=== PATIENT | male | born 1950 | race Caucasian/White ===

== ENCOUNTER → 2016-12-22 | Outpatient (CLI) | payer MEDICARE, BC | LOC: MW.CHFP 08:00 | PROVIDERS: ATTEND Emergency Medicine | DX: D70.2 Other drug-induced agranulocytosis (principal); R73.09 Other abnormal glucose; I10 Essential (primary) hypertension; E78.00 Pure hypercholesterolemia, unspecified | CPT/HCPCS: 99214 ==

== ENCOUNTER → 2016-12-28 | Outpatient (CLI) | payer MEDICARE, BC | END | disposition home or self-care (01) | LOC: MW.LAB 08:00 | PROVIDERS: ATTEND Dermatology | DX: C61 Malignant neoplasm of prostate (principal); R73.9 Hyperglycemia, unspecified; E89.5 Postprocedural testicular hypofunction | CPT/HCPCS: 36415; 85025 ==

== ENCOUNTER → 2016-12-28 | Outpatient (CLI) | payer MEDICARE, BC | END | disposition home or self-care (01) | LOC: MW.CHFP 08:05 | PROVIDERS: ATTEND Emergency Medicine | DX: R73.9 Hyperglycemia, unspecified (principal); C61 Malignant neoplasm of prostate; E89.5 Postprocedural testicular hypofunction | CPT/HCPCS: 36415; 83036 ==

== ENCOUNTER → 2017-01-11 | Outpatient (CLI) | payer MEDICARE, BC | LOC: MW.LAB 08:02 | PROVIDERS: ATTEND Dermatology | DX: Z51.81 Encounter for therapeutic drug level monitoring (principal); L13.9 Bullous disorder, unspecified; Z79.899 Other long term (current) drug therapy | CPT/HCPCS: 36415; 85025 ==

== ENCOUNTER 2018-10-04 11:10 | Observation (INO) | payer MEDICARE, BC ==
[2018-10-04] MEDS ORDERED: Sodium Chloride 0.9% 10 ML Syringe FLUSH PRN (11:22)
[2018-10-04] MEDS ORDERED: Sodium Chloride 0.9% 2.5 ML Syringe FLUSH PRN (11:22)
--- NOTE | 2018-10-04 11:31 | EDM.PDOC ---
ED HPI GENERAL MEDICAL PROBLEM - General Chief Complaint: Chest Pain Stated Complaint: CHEST PAIN Time Seen by Provider: 10/04/18 11:21 Source of Information: Reports: Patient History Limitations: Reports: No Limitations - History of Present Illness INITIAL COMMENTS - FREE TEXT/NARRATIVE: History of present illness: []Patient was lightly shoveling snow at 10 AM this morning when he developed left-sided chest pain that lasted approximately 20 minutes. He describes it as sharp stabbing and nonradiating. Patient denies any sweatiness, shortness of breath, dizziness or syncope. Patient recently saw Dr. Callahan and had a Holter monitor after being diagnosed with atrial fibrillation and starting Xarelto. She was given a Holter monitor in today. Last week patient had a couple episodes of similar chest pain brief period. He also notes that while walking he has had episodes where he has felt extremely weak. He has no chest pain at this time. .Review of systems: As per history of present illness and below otherwise all systems reviewed and negative. Past medical history: As per history of present illness and as reviewed below otherwise noncontributory. Surgical history: As per history of present illness and as reviewed below otherwise noncontributory. Social history: No reported history of drug or alcohol abuse. Family history: As per history of present illness and as reviewed below otherwise noncontributory. Physical exam: General: Well developed, well nourished in NAD HEENT: Atraumatic, normocephalic, pupils reactive, negative for conjunctival pallor or scleral icterus, mucous membranes moist, throat clear, neck supple, nontender, trachea midline. Lungs: Clear to auscultation, breath sounds equal bilaterally, chest nontender. Heart: S1S2, regular, negative for clicks, rubs, or JVD. Abdomen: NABS, Soft, nondistended, nontender. Negative for masses or hepatosplenomegaly. Negative for costovertebral tenderness. Pelvis: Stable nontender. Genitourinary: Deferred. Rectal: Deferred. Extremities: Atraumatic, negative for cords or calf pain. Neurovascular unremarkable. Neuro: Awake, alert, oriented. Cranial nerves II through XII unremarkable. Cerebellum unremarkable. Motor and sensory unremarkable throughout. Exam nonfocal. Skin:warm and dry Diagnostics: CBC, chemistry, troponin, chest x-ray, EKG Therapeutics: None ED Course: Patient remained stable and pain-free Impression: Chest pain Prescriptions: None Plan: Admit for observation and rule out [place] Definitive disposition and diagnosis as appropriate pending reevaluation and review of above. - Related Data Allergies Allergy/AdvReac Type Severity Reaction Status Date / Time Penicillins Allergy Rash Verified 10/04/18 11:21 Home Meds: Home Meds Allopurinol [Zyloprim] 300 mg PO DAILY 03/17/18 [History] Aspirin 81 mg PO DAILY 03/17/18 [History] Cholecalciferol (Vitamin D3) [Vitamin D3] 5,000 unit PO DAILY 03/17/18 [History] Dapsone 50 mg PO MOWEFR@03/17/18 [History] Diltiazem [Dilacor XR] 240 mg PO DAILY 03/17/18 [History] Folic Acid 1 mg PO DAILY 03/17/18 [History] Latanoprost/Pf [Latanoprost 0.005% Eye Drop] 1 drop EYEBOTH BEDTIME 03/17/18 [ History] Levothyroxine 75 mcg PO ACBREAKFAST 03/17/18 [History] Metoprolol Succinate [Toprol XL] 50 mg PO DAILY@1700 03/17/18 [History] Omeprazole 20 mg PO MOWEFR@0730 03/17/18 [History] Rivaroxaban [Xarelto] 20 mg PO DAILY@17003/17/18 [History] Venlafaxine HCl [Venlafaxine HCl ER] 37.5 mg PO DAILY 03/17/18 [History] atorvaSTATin [Lipitor] 40 mg PO DAILY@1700 03/17/18 [History] Betamethasone Dipropionate 1 applic TOP BID 10/04/18 [History] Dapsone 25 mg PO SUTUTHSA@2100 10/04/18 [History] Dapsone 50 mg PO SUTUTHSA@0900 10/04/18 [History] Dorzolamide [Trusopt 2% Ophth Soln] 1 drop EYEBOTH BID 10/04/18 [History] Timolol Maleate 1 drop EYEBOTH BID 10/04/18 [History] Past Medical History HEENT History: Reports: Glaucoma Cardiovascular History: Reports: CAD, High Cholesterol, Hypertension, Pacemaker Respiratory History: Reports: Sleep Apnea Other Respiratory History: Sleep apnea with machine Gastrointestinal History: Reports: None Genitourinary History: Reports: Prostate Disorder, Other (See Below) Other Genitourinary History: prostate cancer Musculoskeletal History: Reports: Gout Neurological History: Reports: None Psychiatric History: Reports: Depression Endocrine/Metabolic History: Reports: Hypothyroidism, Obesity/BMI 30+ Hematologic History: Reports: Blood Transfusion(s) Immunologic History: Reports: None Oncologic (Cancer) History: Reports: Prostate Dermatologic History: Reports: Other (See Below) Other Dermatologic History: Dermatitis chronic - Infectious Disease History Infectious Disease History: Reports: Chicken Pox - Past Surgical History HEENT Surgical History: Reports: Cataract Surgery, Tonsillectomy GI Surgical History: Reports: Colonoscopy Male Surgical History: Reports: Prostatectomy Neurological Surgical History: Reports: None Musculoskeletal Surgical History: Reports: Arthroscopic Knee, Knee Replacement Social & Family History - Family History Family Medical History: Noncontributory - Tobacco Use Smoking Status *Q: Former Smoker Used Tobacco, but Quit: Yes Month/Year Tobacco Last Used: 40 years - Caffeine Use Caffeine Use: Reports: Coffee, Soda, Tea - Recreational Drug Use Recreational Drug Use: No ED ROS GENERAL - Review of Systems Review Of Systems: ROS reveals no pertinent complaints other than HPI. ED EXAM, GENERAL - Physical Exam Exam: See Below (See history of present illness) Course - Vital Signs Last Recorded V/S: Last Vital Signs Temp 97.5 F 10/05/18 05:14 Pulse 70 10/05/18 05:14 Resp 18 10/05/18 05:14 BP 135/87 10/05/18 05:14 Pulse Ox 90 L 10/05/18 05:14 - Orders/Labs/Meds Orders: Active Orders 24 hr Category Date Time Status Patient Status [ADT] Stat ADT 10/04/18 13:15 Active Antiembolic Devices [RC] PER UNIT ROUTINE Care 10/04/18 13:42 Active Oxygen Therapy [RC] PRN Care 10/04/18 13:42 Active Up ad Deandra [RC] ASDIRECTED Care 10/04/18 13:42 Active VTE/DVT Education [RC] PER UNIT ROUTINE Care 10/04/18 13:42 Active Vital Signs [RC] Q4H Care 10/04/18 13:42 Active Allopurinol [Zyloprim] Med 10/05/18 09:00 Active 300 mg PO DAILY Aspirin Med 10/05/18 09:00 Active 81 mg PO DAILY Diltiazem [Cardizem CD] Med 10/05/18 09:00 Active 240 mg PO DAILY Levothyroxine Med 10/05/18 07:30 Active 75 mcg PO ACBREAKFAST Metoprolol Succinate [Toprol XL] Med 10/05/18 09:00 Active 50 mg PO DAILY Patient's Own Medication [Ptom] Med 10/05/18 17:00 Active 1 each PO DAILY@1700 Patient's Own Medication [Ptom] Med 10/05/18 09:00 Active 1 each TOP BID Patient's Own Medication [Ptom] Med 10/05/18 09:00 Active 2 each PO MoWeFr@0900,2100 Sodium Chloride 0.9% [Saline Flush] Med 10/04/18 11:22 Active 10 ml FLUSH ASDIRECTED PRN Sodium Chloride 0.9% [Saline Flush] Med 10/04/18 11:22 Active 2.5 ml FLUSH ASDIRECTED PRN Venlafaxine [Effexor XR] Med 10/05/18 09:00 Active 37.5 mg PO DAILY atorvaSTATin [Lipitor] Med 10/05/18 09:00 Active 40 mg PO DAILY Saline Lock Insert [OM.PC] Stat Oth 10/04/18 11:22 Ordered Sequential Compression Device [OM.PC] Per Unit Routine Oth 10/04/18 13:42 Ordered Resuscitation Status Routine Resus Stat 10/04/18 13:42 Ordered Medication Orders Acetaminophen (Tylenol) 650 mg PO Q6H PRN PRN Reason: Pain Allopurinol (Zyloprim) 300 mg PO DAILY [facility] Aspirin (Aspirin) 81 mg PO DAILY [facility] Atorvastatin Calcium (Lipitor) 40 mg PO DAILY [facility] Diltiazem HCl (Cardizem Cd) 240 mg PO DAILY [facility] Levothyroxine Sodium (Levothyroxine) 75 mcg PO ACBREAKFAST [facility] Last Admin: 10/05/18 07:00 Dose: 75 mcg Metoprolol Succinate (Toprol Xl) 50 mg PO DAILY [facility] Betamethasone Dip (Cream 0.05%) 1 each TOP BID [facility] Dapsone 25 Mg Tablet 2 each PO MoWeFr@0900,2100 [facility] Xarelto 20 Mg 1 each PO DAILY@1700 [facility] Patient Own Medication (Ptom) 2 each PO SuTuThSa@0900 [facility] Dapsone 25 Mg 1 each PO SuTuThSa@2100 [facility] Last Admin: 10/04/18 20:06 Dose: 1 each Timolol Opth 1 each EYEBOTH BID [facility] Last Admin: 10/04/18 20:06 Dose: 1 each Dorzolamide (Ophthalmic Drops) 1 each EYEBOTH BID [facility] Last Admin: 10/04/18 20:06 Dose: 1 each Latanoprost (Ophthalmic) 1 each EYEBOTH BEDTIME [facility] Last Admin: 10/04/18 20:06 Dose: 1 each Sodium Chloride (Saline Flush) 10 ml FLUSH ASDIRECTED PRN PRN Reason: Keep Vein Open Sodium Chloride (Saline Flush) 2.5 ml FLUSH ASDIRECTED PRN PRN Reason: Keep Vein Open Venlafaxine HCl (Effexor Xr) 37.5 mg PO DAILY [facility] Labs: Laboratory Tests 10/04/18 10/04/18 Range/Units 11:37 11:37 WBC 4.68 (4.0-11.0) K/uL RBC 4.02 L (4.50-5.90) M/uL Hgb 12.5 L (13.0-17.0) g/dL Hct 38.8 (38.0-50.0) % MCV 96.5 (80.0-98.0) fL MCH 31.1 (27.0-32.0) pg MCHC 32.2 (31.0-37.0) g/dL RDW Std Deviation 49.2 (28.0-62.0) fl RDW Coeff of Darren 14 (11.0-15.0) % Plt Count 163 (150-400) K/uL MPV 9.80 (7.40-12.00) fL Neut % (Auto) 72.0 (48.0-80.0) % Lymph % (Auto) 15.6 L (16.0-40.0) % [place] % (Auto) 10.7 (0.0-15.0) % Eos % (Auto) 1.5 (0.0-7.0) % Baso % (Auto) 0.2 (0.0-1.5) % Neut # (Auto) 3.4 (1.4-5.7) K/uL Lymph # (Auto) 0.7 (0.6-2.4) K/uL [place] # (Auto) 0.5 (0.0-0.8) K/uL Eos # (Auto) 0.1 (0.0-0.7) K/uL Baso # (Auto) 0.0 (0.0-0.1) K/uL Nucleated RBC % 0.0 /100WBC Nucleated RBCs # 0 K/uL Sodium 141 (136-148) mmol/L Potassium 3.7 (3.5-5.1) mmol/L Chloride 105 (98-107) mmol/L Carbon Dioxide 27.6 (21.0-32.0) mmol/L BUN 12 (7.0-18.0) mg/dL Creatinine 0.9 (0.8-1.3) mg/dL Est Cr Clr Drug Dosing 63.95 mL/min Estimated GFR (MDRD) > 60.0 ml/min Glucose 103 (74-106) mg/dL Calcium 9.4 (8.5-10.1) mg/dL Total Bilirubin 0.8 (0.2-1.0) mg/dL AST 20 (15-37) IU/L ALT 22 (14-63) IU/L Alkaline Phosphatase 65 (46-116) U/L Troponin I < 0.050 (0.000-0.056) ng/mL Total Protein 6.9 (6.4-8.2) g/dL Albumin 3.9 (3.4-5.0) g/dL Globulin 3.0 (2.6-4.0) g/dL Albumin/Globulin Ratio 1.3 (0.9-1.6) Meds: Medications Generic Name Dose Route Start Last Admin Trade Name Freq PRN Reason Stop Dose Admin Acetaminophen 650 mg 10/04/18 16:49 Tylenol PO Q6H PRN Pain Allopurinol 300 mg 10/05/18 09:00 Zyloprim PO DAILY [facility] Aspirin 81 mg 10/05/18 09:00 Aspirin PO DAILY [facility] Atorvastatin Calcium 40 mg 10/05/18 09:00 Lipitor PO DAILY [facility] Diltiazem HCl 240 mg 10/05/18 09:00 Cardizem Cd PO DAILY [facility] Levothyroxine Sodium 75 mcg 10/05/18 07:30 10/05/18 07:00 Levothyroxine PO 75 mcg ACBREAKFAST [facility] Administration Metoprolol Succinate 50 mg 10/05/18 09:00 Toprol Xl PO DAILY [facility] Betamethasone Dip 1 each 10/05/18 09:00 Cream 0.05% TOP BID [facility] Dapsone 25 Mg Tablet 2 each 10/05/18 09:00 PO MoWeFr@0900,2100 [facility] Xarelto 20 Mg 1 each 10/05/18 17:00 PO DAILY@1700 [facility] Patient Own Medication 2 each 10/06/18 09:00 Ptom PO SuTuThSa@0900 [facility] Dapsone 25 Mg 1 each 10/04/18 21:00 10/04/18 20:06 PO 1 each SuTuThSa@2100 [facility] Administration Timolol Opth 1 each 10/04/18 21:00 10/04/18 20:06 EYEBOTH 1 each BID [facility] Administration Dorzolamide 1 each 10/04/18 21:00 10/04/18 20:06 Ophthalmic Drops EYEBOTH 1 each BID [facility] Administration Latanoprost 1 each 10/04/18 21:00 10/04/18 20:06 Ophthalmic EYEBOTH 1 each BEDTIME [facility] Administration Sodium Chloride 10 ml 10/04/18 11:22 Saline Flush FLUSH ASDIRECTED PRN Keep Vein Open Sodium Chloride 2.5 ml 10/04/18 11:22 Saline Flush FLUSH ASDIRECTED PRN Keep Vein Open Venlafaxine HCl 37.5 mg 10/05/18 09:00 Effexor Xr PO DAILY [facility] Departure - Departure Time of Disposition: 07:40 Disposition: Admitted As Inpatient 64 Condition: Good Clinical Impression: Chest pain Qualifiers: Chest pain type: unspecified Qualified Code(s): R07.9 - Chest pain, unspecified - My Orders Last 24 Hours: My Active Orders 10/04/18 11:22 Sodium Chloride 0.9% [Saline Flush] 10 ml FLUSH ASDIRECTED PRN Sodium Chloride 0.9% [Saline Flush] 2.5 ml FLUSH ASDIRECTED PRN Saline Lock Insert [OM.PC] Stat 10/04/18 13:15 Patient Status [ADT] Stat - Assessment/Plan Last 24 Hours: My Active Orders 10/04/18 11:22 Sodium Chloride 0.9% [Saline Flush] 10 ml FLUSH ASDIRECTED PRN Sodium Chloride 0.9% [Saline Flush] 2.5 ml FLUSH ASDIRECTED PRN Saline Lock Insert [OM.PC] Stat 10/04/18 13:15 Patient Status [ADT] Stat
--- NOTE | 2018-10-04 12:27 | CR ---
INDICATION: Shortness of breath TECHNIQUE: Chest 1 view. COMPARISON: None FINDINGS: Cardiovascular and mediastinum: Heart size and vasculature are normal in caliber and appearance. Mediastinum is within normal limits. Dual lead left-sided transvenous pacer device. Lungs and pleural space: Lungs are clear. No sign of infiltrate or mass. No sign of pleural effusion. No pneumothorax. Bones and soft tissues: No significant findings. IMPRESSION: Unremarkable chest. Dictated by Femi Carpio MD @ 10/04/2018 12:27:19 PM Dictated by: Femi Carpio MD @ 10/04/2018 12:27:23 (Electronically Signed)
[2018-10-04 12:37] LABS: CHLORIDE,CL 105 mmol/L (98-107); SODIUM,NA 141 mmol/L (136-148)
--- NOTE | 2018-10-04 13:52 | PCM.HP ---
H&P History of Present Illness - General Date of Service: 10/04/18 Admit Problem/Dx: Admission Diagnosis/Problem Admission Diagnosis/Problem Chest pain - History of Present Illness Initial Comments - Free Text/Narative: 68 yo male with pmh of atrial fibrillation, on anticoagulation, s/p pacemaker placement who presents to the ED with complaints of chest pain. The chest pain occurred after shoveling snow and lasted 20 minutes. It was right sided radiating to shoulder and went away spontaneusly. He had no associated symptoms of shortness of breath, diaphoresis or dizziness. Patient finished a zio patch today. Dr. Martines ordered it due to him having brief episodic symptoms of fatigue and lightheadedness several times last month. - Related Data Allergies/Adverse Reactions: Allergies Allergy/AdvReac Type Severity Reaction Status Date / Time Penicillins Allergy Rash Verified 10/04/18 11:21 Home Medications: Home Meds Allopurinol [Zyloprim] 300 mg PO DAILY 03/17/18 [History] Aspirin 81 mg PO DAILY 03/17/18 [History] Betamethasone Dipropionate [Betamethasone Diprop Augmented] 50 gm EYEBOTH DAILY 03/17/18 [History] Brimonidine Tartrate [Brimonidine Tartrate 0.2% Ophth Soln] 1 drop EYEBOTH DAILY 03/17/18 [History] Cholecalciferol (Vitamin D3) [Vitamin D3] 5,000 unit PO DAILY 03/17/18 [History] Dapsone 1 tab PO DAILY 03/17/18 [History] Diltiazem [Dilacor XR] 240 mg PO DAILY 03/17/18 [History] Dorzolamide HCl/Timolol Maleat [Dorzolamide-Timolol Eye Drops] 1 drop EYEBOTH DAILY 03/17/18 [History] Folic Acid 1 mg PO DAILY 03/17/18 [History] Latanoprost/Pf [Latanoprost 0.005% Eye Drop] 1 drop EYEBOTH BEDTIME 03/17/18 [ History] Levothyroxine 75 mcg PO ACBREAKFAST 03/17/18 [History] Metoprolol Succinate [Toprol XL] 25 mg PO DAILY 03/17/18 [History] Omeprazole 20 mg PO DAILY 03/17/18 [History] Rivaroxaban [Xarelto] 20 mg PO DAILY 03/17/18 [History] Venlafaxine HCl [Venlafaxine HCl ER] 37.5 mg PO DAILY 03/17/18 [History] atorvaSTATin [Lipitor] 40 mg PO DAILY 03/17/18 [History] Past Medical History HEENT History: Reports: Glaucoma Cardiovascular History: Reports: CAD, High Cholesterol, Hypertension, Pacemaker Respiratory History: Reports: Sleep Apnea Other Respiratory History: Sleep apnea with machine Gastrointestinal History: Reports: None Genitourinary History: Reports: Prostate Disorder, Other (See Below) Other Genitourinary History: prostate cancer Musculoskeletal History: Reports: Gout Neurological History: Reports: None Psychiatric History: Reports: Depression Endocrine/Metabolic History: Reports: Hypothyroidism, Obesity/BMI 30+ Hematologic History: Reports: Blood Transfusion(s) Immunologic History: Reports: None Oncologic (Cancer) History: Reports: Prostate Dermatologic History: Reports: Other (See Below) Other Dermatologic History: Dermatitis chronic - Infectious Disease History Infectious Disease History: Reports: Chicken Pox - Past Surgical History HEENT Surgical History: Reports: Cataract Surgery, Tonsillectomy GI Surgical History: Reports: Colonoscopy Male Surgical History: Reports: Prostatectomy Neurological Surgical History: Reports: None Musculoskeletal Surgical History: Reports: Arthroscopic Knee, Knee Replacement Social & Family History - Family History Family Medical History: Noncontributory - Tobacco Use Smoking Status *Q: Former Smoker Used Tobacco, but Quit: Yes Month/Year Tobacco Last Used: 40 years - Caffeine Use Caffeine Use: Reports: Coffee, Soda, Tea - Recreational Drug Use Recreational Drug Use: No H&P Review of Systems - Review of Systems: Review Of Systems: ROS reveals no pertinent complaints other than HPI. Exam - Vital Signs Vital Signs: Last Vital Signs Temp 36.2 C 10/04/18 11:21 Pulse 71 10/04/18 13:00 Resp 18 10/04/18 13:00 BP 151/85 H 10/04/18 13:00 Pulse Ox 93 L 10/04/18 13:00 Weight: 113.398 kg - Exam General: Alert Lungs: Clear to Auscultation, Normal Respiratory Effort Cardiovascular: Regular Rate, Regular Rhythm GI/Abdominal Exam: Soft, Non-Tender Extremities: Non-Tender, No Pedal Edema Skin: Warm, Dry, Intact Psychiatric: Alert, Normal Mood - Patient Data Lab Results Last 24 hrs: Laboratory Results - last 24 hr 10/04/18 10/04/18 Range/Units 11:37 11:37 WBC 4.68 (4.0-11.0) K/uL RBC 4.02 L (4.50-5.90) M/uL Hgb 12.5 L (13.0-17.0) g/dL Hct 38.8 (38.0-50.0) % MCV 96.5 (80.0-98.0) fL MCH 31.1 (27.0-32.0) pg MCHC 32.2 (31.0-37.0) g/dL RDW Std Deviation 49.2 (28.0-62.0) fl RDW Coeff of Darren 14 (11.0-15.0) % Plt Count 163 (150-400) K/uL MPV 9.80 (7.40-12.00) fL Neut % (Auto) 72.0 (48.0-80.0) % Lymph % (Auto) 15.6 L (16.0-40.0) % [place] % (Auto) 10.7 (0.0-15.0) % Eos % (Auto) 1.5 (0.0-7.0) % Baso % (Auto) 0.2 (0.0-1.5) % Neut # (Auto) 3.4 (1.4-5.7) K/uL Lymph # (Auto) 0.7 (0.6-2.4) K/uL [place] # (Auto) 0.5 (0.0-0.8) K/uL Eos # (Auto) 0.1 (0.0-0.7) K/uL Baso # (Auto) 0.0 (0.0-0.1) K/uL Nucleated RBC % 0.0 /100WBC Nucleated RBCs # 0 K/uL Sodium 141 (136-148) mmol/L Potassium 3.7 (3.5-5.1) mmol/L Chloride 105 (98-107) mmol/L Carbon Dioxide 27.6 (21.0-32.0) mmol/L BUN 12 (7.0-18.0) mg/dL Creatinine 0.9 (0.8-1.3) mg/dL Est Cr Clr Drug Dosing 63.95 mL/min Estimated GFR (MDRD) > 60.0 ml/min Glucose 103 (74-106) mg/dL Calcium 9.4 (8.5-10.1) mg/dL Total Bilirubin 0.8 (0.2-1.0) mg/dL AST 20 (15-37) IU/L ALT 22 (14-63) IU/L Alkaline Phosphatase 65 (46-116) U/L Troponin I < 0.050 (0.000-0.056) ng/mL Total Protein 6.9 (6.4-8.2) g/dL Albumin 3.9 (3.4-5.0) g/dL Globulin 3.0 (2.6-4.0) g/dL Albumin/Globulin Ratio 1.3 (0.9-1.6) Result Diagrams: 10/04/18 11:37 10/04/18 11:37 Problem List Initiated/Reviewed/Updated: Yes Orders Last 24hrs: Active Orders 24 hr Category Date Time Status Patient Status [ADT] Stat ADT 10/04/18 13:15 Active Antiembolic Devices [RC] PER UNIT ROUTINE Care 10/04/18 13:42 Ordered EKG Documentation Completion [RC] STAT Care 10/04/18 11:22 Active Oxygen Therapy [RC] PRN Care 10/04/18 13:42 Ordered Up ad Deandra [RC] ASDIRECTED Care 10/04/18 13:42 Ordered VTE/DVT Education [RC] PER UNIT ROUTINE Care 10/04/18 13:42 Ordered Vital Signs [RC] Q4H Care 10/04/18 13:42 Ordered Regular Diet [DIET] Diet 10/04/18 Breakfast Ordered TROPONIN I [CHEM] Q6H Lab 10/04/18 17:00 Ordered TROPONIN I [CHEM] Q6H Lab 10/04/18 23:00 Ordered Allopurinol [Zyloprim] Med 10/05/18 09:00 Ordered 300 mg PO DAILY Aspirin Med 10/05/18 09:00 Ordered 81 mg PO DAILY Betamethasone Dipropionate [Betamethasone Diprop Med 10/05/18 09:00 Ordered Augmented] 50 gm EYEBOTH DAILY Brimonidine Tartrate Med 10/05/18 09:00 Ordered 1 drop EYEBOTH DAILY Dapsone [Dapsone] Med 10/05/18 09:00 Ordered 1 tab PO DAILY Diltiazem Med 10/05/18 09:00 Ordered 240 mg PO DAILY Levothyroxine Med 10/05/18 07:30 Ordered 75 mcg PO ACBREAKFAST Metoprolol Succinate [Toprol XL] Med 10/05/18 09:00 Ordered 50 mg PO DAILY Rivaroxaban [Xarelto] Med 10/05/18 09:00 Ordered 20 mg PO DAILY Sodium Chloride 0.9% [Saline Flush] Med 10/04/18 11:22 Active 10 ml FLUSH ASDIRECTED PRN Sodium Chloride 0.9% [Saline Flush] Med 10/04/18 11:22 Active 2.5 ml FLUSH ASDIRECTED PRN Venlafaxine HCl [Venlafaxine HCl ER] Med 10/05/18 09:00 Ordered 37.5 mg PO DAILY atorvaSTATin [Lipitor] Med 10/05/18 09:00 Ordered 40 mg PO DAILY Saline Lock Insert [OM.PC] Stat Oth 10/04/18 11:22 Ordered Sequential Compression Device [OM.PC] Per Unit Routine Oth 10/04/18 13:42 Ordered Resuscitation Status Routine Resus Stat 10/04/18 13:42 Ordered Medication Orders Allopurinol (Zyloprim) 300 mg PO DAILY [facility] Aspirin (Aspirin) 81 mg PO DAILY [facility] Atorvastatin Calcium (Lipitor) 40 mg PO DAILY [facility] Levothyroxine Sodium (Levothyroxine) 75 mcg PO ACBREAKFAST [facility] Metoprolol Succinate (Toprol Xl) 50 mg PO DAILY [facility] Non-Formulary Medication (Betamethasone Dipropionate [Betamethasone Diprop Augmented]) 50 gm EYEBOTH DAILY [facility] Non-Formulary Medication (Brimonidine Tartrate) 1 drop EYEBOTH DAILY [facility] Non-Formulary Medication (Dapsone [Dapsone]) 1 tab PO DAILY [facility] Non-Formulary Medication (Diltiazem) 240 mg PO DAILY [facility] Non-Formulary Medication (Rivaroxaban [Xarelto]) 20 mg PO DAILY [facility] Non-Formulary Medication (Venlafaxine Hcl [Venlafaxine Hcl Er]) 37.5 mg PO DAILY [facility] Sodium Chloride (Saline Flush) 10 ml FLUSH ASDIRECTED PRN PRN Reason: Keep Vein Open Sodium Chloride (Saline Flush) 2.5 ml FLUSH ASDIRECTED PRN PRN Reason: Keep Vein Open Assessment/Plan Comment:: 68 yo male admitted with chest pain. We will monitor overnight on telemetry and trend cardiac enzymes.
[2018-10-04] MEDS ORDERED: Acetaminophen 325 MG Tab PO PRN (16:49)
[2018-10-04] MEDS: DORZOLAMIDE EYEBOTH SCH (20:06)
[2018-10-04] MEDS: TIMOLOL OPTH EYEBOTH SCH (20:06)
[2018-10-04] MEDS ORDERED: LATANOPROST EYEBOTH SCH (21:00)
[2018-10-04] MEDS ORDERED: DAPSONE 25 MG PO SCH (21:00)
[2018-10-05] MEDS ORDERED: Levothyroxine 75 MCG Tab PO SCH (07:30)
[2018-10-05 08:10] VITALS: BP 144/75
[2018-10-05] MEDS ORDERED: Metoprolol Succinate 50 MG Tab.ER PO SCH (09:00)
[2018-10-05] MEDS ORDERED: BRIMONIDINE EYEBOTH SCH (09:00)
[2018-10-05] MEDS ORDERED: atorvaSTATin 40 MG Tab PO SCH (09:00)
[2018-10-05] MEDS ORDERED: Venlafaxine 37.5 MG Cap.ER PO SCH (09:00)
[2018-10-05] MEDS ORDERED: BETAMETHASONE DIP 0.05% TOP SCH (09:00)
[2018-10-05] MEDS ORDERED: Diltiazem 120 MG Cap.CD PO SCH (09:00)
[2018-10-05] MEDS ORDERED: DAPSONE 25 MG TABLET PO SCH (09:00)
[2018-10-05] MEDS ORDERED: Allopurinol 300 MG Tab PO SCH (09:00)
[2018-10-05] MEDS ORDERED: Aspirin 81 MG Tab.Chew PO SCH (09:00)
[2018-10-05] MEDS: DORZOLAMIDE EYEBOTH SCH (10:47)
[2018-10-05] MEDS: TIMOLOL OPTH EYEBOTH SCH (10:48)
--- NOTE | 2018-10-05 11:04 | PCM.DCSUM1 ---
Discharge Summary - Hospital Course Brief History: 68 yo male with pmh of atrial fibrillation, on anticoagulation, s /p pacemaker placement who presents to the ED with complaints of chest pain. The chest pain occurred after shoveling snow and lasted 20 minutes. It was right sided radiating to shoulder and went away spontaneusly. He had no associated symptoms of shortness of breath, diaphoresis or dizziness. Patient finished a zio patch today. Dr. Matrines ordered it due to him having brief episodic symptoms of fatigue and lightheadedness several times last month. Diagnosis: Stroke: No - Discharge Data Discharge Date: 10/05/18 Discharge Disposition: Home, Self-Care 01 Condition: Good - Patient Instructions Diet: Heart Healthy Diet Activity: No Strenuous Activities Driving: May Drive Today Notify Provider of: Fever, Increased Pain, Swelling and Redness, Drainage, Nausea and/or Vomiting - Discharge Plan *PRESCRIPTION DRUG MONITORING PROGRAM REVIEWED*: Not Applicable *COPY OF PRESCRIPTION DRUG MONITORING REPORT IN PATIENT AC: Not Applicable Home Medications: Home Meds Allopurinol [Zyloprim] 300 mg PO DAILY 03/17/18 [History] Aspirin 81 mg PO DAILY 03/17/18 [History] Cholecalciferol (Vitamin D3) [Vitamin D3] 5,000 unit PO DAILY 03/17/18 [History] Dapsone 50 mg PO MOWEFR@03/17/18 [History] Diltiazem [Dilacor XR] 240 mg PO DAILY 03/17/18 [History] Folic Acid 1 mg PO DAILY 03/17/18 [History] Latanoprost/Pf [Latanoprost 0.005% Eye Drop] 1 drop EYEBOTH BEDTIME 03/17/18 [ History] Levothyroxine 75 mcg PO ACBREAKFAST 03/17/18 [History] Metoprolol Succinate [Toprol XL] 50 mg PO DAILY@169903/17/18 [History] Omeprazole 20 mg PO MOWEFR@72903/17/18 [History] Rivaroxaban [Xarelto] 20 mg PO DAILY@169903/17/18 [History] Venlafaxine HCl [Venlafaxine HCl ER] 37.5 mg PO DAILY 03/17/18 [History] atorvaSTATin [Lipitor] 40 mg PO DAILY@169903/17/18 [History] Betamethasone Dipropionate 1 applic TOP BID 10/04/18 [History] Dapsone 25 mg PO SUTUTHSA@2100 10/04/18 [History] Dapsone 50 mg PO SUTUTHSA@0900 10/04/18 [History] Dorzolamide [Trusopt 2% Ophth Soln] 1 drop EYEBOTH BID 10/04/18 [History] Timolol Maleate 1 drop EYEBOTH BID 10/04/18 [History] Oxygen Therapy Mode: Room Air Patient Handouts: Nonspecific Chest Pain, [id number] Referrals: Renee Medina MD [Physician] - 10/18/18 (FOLLOW UP WITH PREVIOUSLY SCHEDULED APPOINTMENT ) PCP,Unknown [Primary Care Provider] - - Discharge Summary/Plan Comment DC Time >30 min.: No Discharge Summary/Plan Comment: Discharge Diagnoses: Atypical chest pain-resolved Afib Anticoagulation Pacemaker HTN CAD Christian was admitted and monitored overnight to rule out ACS. Troponins negative, EKG did not show any acute ST changes. He remained pain free and is very eager for discharge today. He will follow up with Dr Medina in 1 week. He is to continue all current home medications. Return to ED or clinic if concerns should arise sooner. - General Info Date of Service: 10/05/18 Admission Dx/Problem (Free Text: Admission Diagnosis/Problem Admission Diagnosis/Problem Chest pain Subjective Update: Reports feeling great, eager to go home. No further chest pain and no shortness of breath. Functional Status: Reports: Tolerating Diet - Review of Systems General: Reports: No Symptoms. Denies: Fever, Weakness, Fatigue HEENT: Reports: No Symptoms. Denies: Headaches, Sore Throat Pulmonary: Reports: No Symptoms. Denies: Shortness of Breath, Cough, Sputum Cardiovascular: Reports: No Symptoms. Denies: Chest Pain, Edema Gastrointestinal: Reports: No Symptoms. Denies: Abdominal Pain, Nausea, Vomiting Genitourinary: Reports: No Symptoms Musculoskeletal: Reports: No Symptoms Skin: Reports: No Symptoms Neurological: Reports: No Symptoms Psychiatric: Reports: No Symptoms - Patient Data Vitals - Most Recent: Last Vital Signs Temp 97.3 F 10/05/18 08:09 Pulse 70 10/05/18 08:09 Resp 16 10/05/18 08:09 BP 144/75 H 10/05/18 08:09 Pulse Ox 93 L 10/05/18 08:09 Weight - Most Recent: 90.31 kg I&O - Last 24 hours: Intake & Output 10/04/18 10/05/18 10/05/18 22:59 06:59 14:59 Intake Total 0 300 Balance 0 300 Lab Results - Last 24 hrs: Laboratory Results - last 24 hr 10/04/18 10/04/18 10/04/18 Range/Units 11:37 11:37 17:12 WBC 4.68 (4.0-11.0) K/uL RBC 4.02 L (4.50-5.90) M/uL Hgb 12.5 L (13.0-17.0) g/dL Hct 38.8 (38.0-50.0) % MCV 96.5 (80.0-98.0) fL MCH 31.1 (27.0-32.0) pg MCHC 32.2 (31.0-37.0) g/dL RDW Std Deviation 49.2 (28.0-62.0) fl RDW Coeff of Darren 14 (11.0-15.0) % Plt Count 163 (150-400) K/uL MPV 9.80 (7.40-12.00) fL Neut % (Auto) 72.0 (48.0-80.0) % Lymph % (Auto) 15.6 L (16.0-40.0) % [place] % (Auto) 10.7 (0.0-15.0) % Eos % (Auto) 1.5 (0.0-7.0) % Baso % (Auto) 0.2 (0.0-1.5) % Neut # (Auto) 3.4 (1.4-5.7) K/uL Lymph # (Auto) 0.7 (0.6-2.4) K/uL [place] # (Auto) 0.5 (0.0-0.8) K/uL Eos # (Auto) 0.1 (0.0-0.7) K/uL Baso # (Auto) 0.0 (0.0-0.1) K/uL Nucleated RBC % 0.0 /100WBC Nucleated RBCs # 0 K/uL Sodium 141 (136-148) mmol/L Potassium 3.7 (3.5-5.1) mmol/L Chloride 105 (98-107) mmol/L Carbon Dioxide 27.6 (21.0-32.0) mmol/L BUN 12 (7.0-18.0) mg/dL Creatinine 0.9 (0.8-1.3) mg/dL Est Cr Clr Drug Dosing 63.95 mL/min Estimated GFR (MDRD) > 60.0 ml/min Glucose 103 (74-106) mg/dL Calcium 9.4 (8.5-10.1) mg/dL Total Bilirubin 0.8 (0.2-1.0) mg/dL AST 20 (15-37) IU/L ALT 22 (14-63) IU/L Alkaline Phosphatase 65 (46-116) U/L Troponin I < 0.050 < 0.050 (0.000-0.056) ng/mL Total Protein 6.9 (6.4-8.2) g/dL Albumin 3.9 (3.4-5.0) g/dL Globulin 3.0 (2.6-4.0) g/dL Albumin/Globulin Ratio 1.3 (0.9-1.6) 10/04/18 Range/Units 23:15 WBC (4.0-11.0) K/uL RBC (4.50-5.90) M/uL Hgb (13.0-17.0) g/dL Hct (38.0-50.0) % MCV (80.0-98.0) fL MCH (27.0-32.0) pg MCHC (31.0-37.0) g/dL RDW Std Deviation (28.0-62.0) fl RDW Coeff of Darren (11.0-15.0) % Plt Count (150-400) K/uL MPV (7.40-12.00) fL Neut % (Auto) (48.0-80.0) % Lymph % (Auto) (16.0-40.0) % [place] % (Auto) (0.0-15.0) % Eos % (Auto) (0.0-7.0) % Baso % (Auto) (0.0-1.5) % Neut # (Auto) (1.4-5.7) K/uL Lymph # (Auto) (0.6-2.4) K/uL [place] # (Auto) (0.0-0.8) K/uL Eos # (Auto) (0.0-0.7) K/uL Baso # (Auto) (0.0-0.1) K/uL Nucleated RBC % /100WBC Nucleated RBCs # K/uL Sodium (136-148) mmol/L Potassium (3.5-5.1) mmol/L Chloride (98-107) mmol/L Carbon Dioxide (21.0-32.0) mmol/L BUN (7.0-18.0) mg/dL Creatinine (0.8-1.3) mg/dL Est Cr Clr Drug Dosing mL/min Estimated GFR (MDRD) ml/min Glucose (74-106) mg/dL Calcium (8.5-10.1) mg/dL Total Bilirubin (0.2-1.0) mg/dL AST (15-37) IU/L ALT (14-63) IU/L Alkaline Phosphatase (46-116) U/L Troponin I < 0.050 (0.000-0.056) ng/mL Total Protein (6.4-8.2) g/dL Albumin (3.4-5.0) g/dL Globulin (2.6-4.0) g/dL Albumin/Globulin Ratio (0.9-1.6) Med Orders - Current: Current Medications Acetaminophen (Tylenol) 650 mg PO Q6H PRN PRN Reason: Pain Allopurinol (Zyloprim) 300 mg PO DAILY [facility] Last Admin: 10/05/18 10:48 Dose: Not Given Aspirin (Aspirin) 81 mg PO DAILY [facility] Last Admin: 10/05/18 10:47 Dose: Not Given Atorvastatin Calcium (Lipitor) 40 mg PO DAILY [facility] Last Admin: 10/05/18 10:47 Dose: Not Given Diltiazem HCl (Cardizem Cd) 240 mg PO DAILY [facility] Last Admin: 10/05/18 10:47 Dose: Not Given Levothyroxine Sodium (Levothyroxine) 75 mcg PO ACBREAKFAST [facility] Last Admin: 10/05/18 07:00 Dose: 75 mcg Metoprolol Succinate (Toprol Xl) 50 mg PO DAILY [facility] Last Admin: 10/05/18 10:48 Dose: Not Given Betamethasone Dip (Cream 0.05%) 1 each TOP BID [facility] Last Admin: 10/05/18 10:47 Dose: Not Given Dapsone 25 Mg Tablet 2 each PO MoWeFr@0900,2100 [facility] Last Admin: 10/05/18 10:47 Dose: Not Given Xarelto 20 Mg 1 each PO DAILY@1700 [facility] Dapsone 25 Mg 2 each PO SuTuThSa@0900 TOBI Dapsone 25 Mg 1 each PO SuTuThSa@2100 [facility] Last Admin: 10/04/18 20:06 Dose: 1 each Timolol Opth 1 each EYEBOTH BID [facility] Last Admin: 10/05/18 10:48 Dose: Not Given Dorzolamide (Ophthalmic Drops) 1 each EYEBOTH BID [facility] Last Admin: 10/05/18 10:47 Dose: Not Given Latanoprost (Ophthalmic) 1 each EYEBOTH BEDTIME [facility] Last Admin: 10/04/18 20:06 Dose: 1 each Sodium Chloride (Saline Flush) 10 ml FLUSH ASDIRECTED PRN PRN Reason: Keep Vein Open Sodium Chloride (Saline Flush) 2.5 ml FLUSH ASDIRECTED PRN PRN Reason: Keep Vein Open Venlafaxine HCl (Effexor Xr) 37.5 mg PO DAILY [facility] Last Admin: 10/05/18 10:47 Dose: Not Given - Exam General: Reports: Alert, Oriented, Cooperative, No Acute Distress Lungs: Reports: Clear to Auscultation, Normal Respiratory Effort Cardiovascular: Reports: Regular Rate, Regular Rhythm GI/Abdominal Exam: Normal Bowel Sounds, Soft, Non-Tender Extremities: Normal Inspection, Normal Range of Motion, Non-Tender, No Pedal Edema Wound/Incisions: Reports: Healing Well Neurological: Reports: No New Focal Deficit Psy/Mental Status: Reports: Alert, Normal Affect, Normal Mood
[2018-10-05] MEDS ORDERED: XARELTO 20 MG PO SCH (17:00)
== END 2018-10-05 12:45 | disposition home or self-care (01) ==
LOC: MW.ED 11:10 → MW.MS 14:11
PROVIDERS: ADMIT Internal Medicine; ATTEND Internal Medicine
DX: R07.89 Other chest pain (principal); I48.91 Unspecified atrial fibrillation; I10 Essential (primary) hypertension; I25.10 Atherosclerotic heart disease of native coronary artery without angina pectoris; E66.9 Obesity, unspecified; E03.9 Hypothyroidism, unspecified; E78.00 Pure hypercholesterolemia, unspecified; Z87.891 Personal history of nicotine dependence; Z79.01 Long term (current) use of anticoagulants; Z79.82 Long term (current) use of aspirin; Z79.890 Hormone replacement therapy; Z79.899 Other long term (current) drug therapy; Z95.0 Presence of cardiac pacemaker; Z88.0 Allergy status to penicillin
CPT/HCPCS: 36415; 71045; 80053; 84484; 85025; 93005; 99285; A9270; G0378; 99284

== ENCOUNTER 2023-04-22 09:08 | Day surgery (SDC) | payer MEDICARE, BC ==
[~2023-04-22 09:08] MED LIST: Albuterol 0.083% 2.5 MG/3 ML Neb Soln NEB PRN; HYDROmorphone 1 MG/ML Syringe IVPUSH PRN; Lactated Ringers 1,000 ML IV SCH; Metoclopramide 10 MG/2 ML SDV IVPUSH PRN; Morphine 2 MG/ML SYRINGE IVPUSH PRN; Naloxone 0.4 MG/ML SDV IVPUSH PRN; Ondansetron 4 MG/2 ML SDV IVPUSH PRN; Sodium Chloride 0.9% 10 ML Syringe FLUSH PRN; Sodium Chloride 0.9% 2.5 ML Syringe FLUSH PRN; Sodium Chloride 0.9% 20 ML SDV IV PRN; ceFAZolin 2 GM in Sodium Chloride 0.9% 50 ML IV ONE; droPERidol 5 MG/2 ML SDV IVPUSH PRN; fentaNYL 50 MCG/ML SDV IVPUSH PRN
[2023-04-22] MEDS ORDERED: Bupivacaine 0.5% 30 ML SDV ONE (09:19)
[2023-04-22 12:07] VITALS: BP 124/70; PULSE 72
== END 2023-04-22 11:15 | disposition home or self-care (01) ==
LOC: MW.SDS 09:08
PROVIDERS: ATTEND Surgery
DX: R59.0 Localized enlarged lymph nodes (principal); F41.9 Anxiety disorder, unspecified; K21.9 Gastro-esophageal reflux disease without esophagitis; I10 Essential (primary) hypertension; E78.00 Pure hypercholesterolemia, unspecified; E03.9 Hypothyroidism, unspecified; M10.9 Gout, unspecified; I25.10 Atherosclerotic heart disease of native coronary artery without angina pectoris; I48.0 Paroxysmal atrial fibrillation; E66.9 Obesity, unspecified; G47.30 Sleep apnea, unspecified; Z88.0 Allergy status to penicillin; Z79.01 Long term (current) use of anticoagulants; Z79.890 Hormone replacement therapy; Z79.899 Other long term (current) drug therapy; Z87.891 Personal history of nicotine dependence; Z79.82 Long term (current) use of aspirin
CPT/HCPCS: 38531; 88305; J3490; J7120; 01250; 99100

== ENCOUNTER 2023-06-07 11:18 | Emergency (ER) | payer MEDICARE, BC ==
[2023-06-07] MEDS ORDERED: methylPREDNISolone Sodium Succinate 125 MG/2 ML SDV IVPUSH ONE (11:46)
[2023-06-07] MEDS ORDERED: Albuterol/Ipratropium 3.0-0.5 MG/3 ML Neb Soln NEB ONE (11:46)
[2023-06-07 12:22] LABS: BASOPHILS ABSOLUTE AUTO 0.01 K/uL (0.00-0.20); BASOPHILS PERCENT AUTO 0.1 % (0.0-1.0); EOSINOPHILS ABSOLUTE AUTO 0.16 K/uL (0.00-0.45); EOSINOPHILS PERCENT AUTO 1.8 % (0.0-6.0); HEMATOCRIT 40.4 % (42.0-52.0); IMMATURE GRAN ABSOLUTE AUTO 0.03 K/uL (0.00-0.05); IMMATURE GRAN PERCENT AUTO 0.3 % (0.0-0.4); LYMPHOCYTES ABSOLUTE AUTO 0.87 K/uL (1.00-4.80); LYMPHOCYTES PERCENT AUTO 9.9 % (24.0-44.0); MEAN CORPUSCULAR HEMOGLOBIN 31.8 pg (28.0-32.0); MEAN CORPUSCULAR HGB CONC 32.2 g/dL (32.0-36.0); MEAN CORPUSCULAR VOLUME 98.8 fL (83.0-99.0); MEAN PLATELET VOLUME 10.5 fL (9.4-12.4); MONOCYTES ABSOLUTE AUTO 0.77 K/uL (0.00-0.80); MONOCYTES PERCENT AUTO 8.7 % (0.0-8.0); NEUTROPHILS ABSOLUTE AUTO 6.98 K/uL (1.80-7.70); NEUTROPHILS PERCENT AUTO 79.2 % (41.0-71.0); PLATELET COUNT,PLT 174 K/uL (150-400); RED BLOOD CELL COUNT 4.09 M/uL (4.52-5.90); WHITE BLOOD CELL COUNT,WBC 8.82 K/uL (3.9-11.3)
[2023-06-07 12:41] LABS: BASE EXCESS VENOUS 2.6 (-2.0-3.0); BICARBONATE,VENOUS 28 mEq/L (23-28); PCO2 VENOUS 46 mmHG (41-51); PH,VENOUS 7.39 (7.31-7.41)
[2023-06-07 12:42] LABS: PO2 VENOUS < 30 mmHG
[2023-06-07 12:50] LABS: A/G RATIO 1.2 (0.9-1.6); ALBUMIN 4.3 g/dL (3.4-5.0); BILIRUBIN TOTAL 1.6 mg/dL (0.2-1.0); C-REACTIVE PROTEIN 4.72 mg/dL (<0.3); CALCIUM 9.2 mg/dL (8.5-10.1); CARBON DIOXIDE,CO2 27.7 mmol/L (21.0-32.0); CREATININE 1.1 mg/dL (0.8-1.3); EST CRCL DRUG DOSING (CG) 52.36 mL/min; POTASSIUM,K 3.7 mmol/L (3.5-5.1)
[2023-06-07 13:03] LABS: CORONAVIRUS COVID-19 NAA NEGATIVE (NEGATIVE); INFLUENZA A NAA NEGATIVE (NEGATIVE); INFLUENZA B NAA NEGATIVE (NEGATIVE)
[2023-06-07] MEDS ORDERED: Azithromycin 500 MG in Sodium Chloride 0.9% 250 ML IV ONE (13:17)
[2023-06-07] MEDS ORDERED: cefTRIAXone 1 GM in Sodium Chloride 0.9% 50 ML IV ONE (13:17)
[2023-06-07 15:04] VITALS: BP 116/68; PULSE 75
== END 2023-06-07 15:05 | disposition home or self-care (01) ==
LOC: MW.ED 11:18
DX: R05.9 Cough, unspecified (principal); E03.9 Hypothyroidism, unspecified; E66.9 Obesity, unspecified; I25.10 Atherosclerotic heart disease of native coronary artery without angina pectoris; E78.00 Pure hypercholesterolemia, unspecified; I10 Essential (primary) hypertension; Z95.0 Presence of cardiac pacemaker; Z79.01 Long term (current) use of anticoagulants; Z79.899 Other long term (current) drug therapy; Z88.0 Allergy status to penicillin; Z68.32 Body mass index [BMI] 32.0-32.9, adult; Z87.891 Personal history of nicotine dependence; Z20.822 Contact with and (suspected) exposure to COVID-19
CPT/HCPCS: 0240U; 36415; 71045; 80053; 82803; 83735; 83880; 84484; 85025; 86140; 93005; 96365; 96367; 96375; 99284; J0456; J0696; J2930; J3490; J7050; 93010; J7620-GY

== ENCOUNTER 2024-07-13 08:26 | Day surgery (SDC) | payer MEDICARE, BC ==
[~2024-07-13 08:26] MED LIST changes: -Albuterol 0.083% 2.5 MG/3 ML Neb Soln NEB PRN; -HYDROmorphone 1 MG/ML Syringe IVPUSH PRN; -Lactated Ringers 1,000 ML IV SCH; -Metoclopramide 10 MG/2 ML SDV IVPUSH PRN; -Morphine 2 MG/ML SYRINGE IVPUSH PRN; -Naloxone 0.4 MG/ML SDV IVPUSH PRN; -Ondansetron 4 MG/2 ML SDV IVPUSH PRN; -ceFAZolin 2 GM in Sodium Chloride 0.9% 50 ML IV ONE; -droPERidol 5 MG/2 ML SDV IVPUSH PRN; -fentaNYL 50 MCG/ML SDV IVPUSH PRN
[2024-07-13] MEDS ORDERED: Lactated Ringers 1,000 ML IV SCH (09:00)
[2024-07-13] MEDS ORDERED: Propofol 200 MG/20 ML SDV ONE (09:48)
[2024-07-13] MEDS ORDERED: propofoL 500 MG/50 ML 50 ML ONE (09:53)
[2024-07-13] MEDS ORDERED: Lidocaine 1% 5 ML VIAL ONE (09:53)
[2024-07-13 10:42] VITALS: PULSE 70
[2024-07-13 12:32] VITALS: BP 109/67
== END 2024-07-13 11:15 | disposition home or self-care (01) ==
LOC: MW.SDS 08:26
PROVIDERS: ATTEND Surgery
DX: Z12.11 Encounter for screening for malignant neoplasm of colon (principal); D12.2 Benign neoplasm of ascending colon; D12.3 Benign neoplasm of transverse colon; K57.30 Diverticulosis of large intestine without perforation or abscess without bleeding; Z86.0100 Personal history of colon polyps, unspecified; I10 Essential (primary) hypertension; K21.9 Gastro-esophageal reflux disease without esophagitis; E78.00 Pure hypercholesterolemia, unspecified; E03.9 Hypothyroidism, unspecified; I48.0 Paroxysmal atrial fibrillation; Z87.891 Personal history of nicotine dependence; Z79.890 Hormone replacement therapy; Z79.01 Long term (current) use of anticoagulants; Z79.899 Other long term (current) drug therapy
CPT/HCPCS: 45380; 88305; J2704; 00811; 99100; J3490